=== PATIENT | female | born 1955 | race Caucasian/White ===

== ENCOUNTER → 2017-09-16 | Outpatient (CLI) | payer BC ==
--- NOTE | 2017-09-16 11:14 | BD ---
EXAMINATION TYPE: MG DEXA axial skeleton. DATE OF EXAM: 09/16/2017 COMPARISON: NONE CLINICAL HISTORY: post menopausal Height: 5'4 Weight: 178 FRAX RISK QUESTIONS: Alcohol (3 or more units per day): no Family History (Parent hip fracture): no Glucocorticoids (More than 3mos): no (Ex: prednisone, prednisolone, methylprednisolone, dexamethasone, and hydrocortisone). History of Fracture in Adulthood: no Secondary Osteoporosis: 1. Type 1 Diabetes: no 2. Hyperthyroidism: no 3. Menopause before 45: no 4. Malnutrition: no 5. Chronic liver disease: no Rheumatoid Arthritis: no Current Tobacco Use: no RISK FACTORS HISTORY OF: Diet low in dairy products/other sources of calcium: post menopausal MEDICATIONS: Thyroid Medications: Which medication: Synthroid How Lon years Additional Medications: high blood pressure, baby aspirin , cholesterol Additional History: squamous cell 10 years ago EXAM MEASUREMENTS: Bone mineral densitometry was performed using the [employer] System. Bone mineral density as measured about the Lumbar spine is: ----- L1-L4(G/cm2): 1.135 T Score Values are as follows: ----- L2: -0.8 ----- L3: -0.5 ----- L4: 0.6 ----- L1-L4: -0.4 Bone mineral density about the R hip (g/cm2): 1.011 Bone mineral density about the L hip (g/cm2): 0.995 T Score values are as follows: -----R Neck: -0.2 -----L Neck: -0.3 -----R Total: 0.4 -----L Total: 0.3 IMPRESSION: Normal (Values between +1 and -1 indicate normal bone mass). Consider repeating this study in 5 year s or sooner if there is some new clinical indication. NOTE: T-SCORE=SD OF THE YOUNG ADULT MEAN.
== END | disposition home or self-care (01) ==
LOC: RADBDWWP 10:31
PROVIDERS: ATTEND Obstetrics & Gynecology
DX: Z78.0 Asymptomatic menopausal state (principal)
CPT/HCPCS: 77080

== ENCOUNTER → 2018-11-24 | Outpatient (CLI) | payer MEDICARE, BC ==
[2018-11-24 09:44] VITALS: BP 146/88; PULSE 61; RESP 18; TEMP 98.6; BMI 31.9
--- NOTE | 2018-11-24 10:26 | P.HPOB ---
History of Present Illness H&P Date: 11/24/18 Chief Complaint: The patient is here for her routine gynecologic exam and ma mmogram. This is a 63-year-old with an LMP of 2007. The patient is without gynecologic complaints. Review of Systems Her weight has been stable.. She denies respiratory, cardiac and G.I. problems. She denies maltreatment or problems with falling. : she has occasional urinary leakage with coughing or laughing. She is declining any treatment for this at this time. 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 Hypothyroidism. 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 History of Any Multi-Drug Resistant Organisms: None Reported Past Surgical History: Tubal Ligation Additional Past Surgical History / Comment(s): R eye, ear tubes, and tonsil biopsy. Colonoscopy 2013(3rd, next 5yrs). Past Anesthesia/Blood Transfusion Reactions: No Reported Reaction Past Psychological History: No Psychological Hx Reported Smoking Status: Former smoker Past Alcohol Use History: Occasional (2 per week) Past Drug Use History: None Reported Additional History: Quit smoking in 2006. She has been since 1973 and is retired. - Past Family History Sister(s) Family Medical History: Cancer Additional Family Medical History / Comment(s): Ovarian cancer Niece Family Medical History: Cancer Additional Family Medical History / Comment(s): Breast cancer Grandmother Family Medical History: Cancer Additional Family Medical History / Comment(s): Colon cancer Father Family Medical History: Diabetes Mellitus Mother Additional Family Medical History / Comment(s): Heart disease. Medications and Allergies Home Medications Medication Instructions Recorded Confirmed Type Aspirin 81 mg PO DAILY 11/24/18 11/24/18 History Atenolol 25 mg PO DAILY 11/24/18 11/24/18 History Atorvastatin [Lipitor] 10 mg PO HS 11/24/18 11/24/18 History Levothyroxine Sodium [Synthroid] 75 mcg PO DAILY 11/24/18 11/24/18 History Losartan/Hydrochlorothiazide 50 PO DAILY 11/24/18 History [Losartan-Hctz 50-12.5 mg Tab] Allergies Allergy/AdvReac Type Severity Reaction Status Date / Time No Known Allergies Allergy Unverified 04/24/19 09:33 Exam Vital Signs Temp Pulse Resp BP Pulse Ox 11/24/18 09:38 98.6 F 61 18 146/88 97 Intake and Output 11/23/18 11/24/18 11/24/18 22:59 06:59 14:59 Other: Weight 84.368 kg Height 5'4", weight 186 pounds, BMI 31.9. This is a well-developed well-nourished white female who is alert and oriented times 3 in no acute distress. HEENT: Within normal limits. NECK: there is generalized firmness without palpable masses and no evidence of thyromegaly. The patient has a history of chronic neck firmness since her radiation treatment for tonsillar cancer many years ago. The neck is nontender. CHEST AND LUNGS: Clear to auscultation. HEART: Regular rate and rhythm. BREASTS: Are without mass or discharge. There is central nipple inversion bilaterally. The patient states it is been this way for many years. AXILLARY EXAM: Negative for adenopathy. BACK: Negative for CVA tenderness. ABDOMEN: Soft, nontender, without palpable masses. PELVIC EXAM: Normal external genitalia with mild to moderate atrophy. Cervix and vagina appear normal with mild atrophy. There is no unusual discharge. There is no evidence of prolapse at rest. There is mild urethral mobility with cough and Valsalva. No urinary leakage was demonstrated. The uterus is midposition, nongravid size and nontender. There are no palpable adnexal masses or tenderness. RECTAL EXAM: rectovaginal exam is negative for mass or tenderness and is negative for occult blood. EXTREMITIES: Nontender. IMPRESSION: 1. 63-year-old menopausal female with normal gynecologic exam. 2. Mild stress urinary incontinence without significant cystocele. 3. History of tonsillar cancer in 2006. PLAN: 1. Pap smear was deferred since she had a normal one on 07/08/2017. 2. Self breast awareness was discussed with the patient. 3. Screening mammogram will be done today. 4. The patient will follow up with her 3 specialists that follow her for her tonsillar cancer. 5. Osteoporosis prevention was discussed. I have stressed the importance of adequate calcium, vitamin D and regular exercise. Recommended amounts of calcium and vitamin D were also discussed. She had a normal bone density test on 09/16/2017 and this will be repeated at age 68. 6. I have recommended screening colonoscopy since she was told to have this repeated after 5 years. She will do this through Dr. Mota. 7. We have discussed the option of referral for further evaluation of stress urinary incontinence. She is declining referral at this time. 8.She was advised to return in one year for her annual well woman exam.
--- NOTE | 2018-11-25 10:46 | MM ---
Reason for exam: screening (asymptomatic). Last mammogram was performed 1 year and 5 months ago. History: Patient is postmenopausal and has history of other cancer at age 52. Physical Findings: A clinical breast exam by your physician is recommended on an annual basis and results should be correlated with mammographic findings. MG 3D Screening Mammo W/Cad Bilateral CC and MLO view(s) were taken. Prior study comparison: July 08, 2017, bilateral MG 3d screening mammo w/cad. June 03, 2016, bilateral MG 3d screening mammo w/cad. There are scattered fibroglandular densities. Benign calcifications in the right breast. No suspicious abnormality. No significant changes when compared with prior studies. ASSESSMENT: Benign, BI-RAD 2 RECOMMENDATION: Routine screening mammogram of both breasts in 1 year.
== END ==
LOC: WWCWWP 09:21
PROVIDERS: ATTEND Obstetrics & Gynecology
DX: Z12.31 Encounter for screening mammogram for malignant neoplasm of breast (principal)
CPT/HCPCS: 77063; 77067

== ENCOUNTER → 2020-12-12 | Outpatient (CLI) | payer MEDICARE, BC ==
[2020-12-12 09:20] VITALS: BP 136/69; PULSE 64; RESP 18; TEMP 98.4
--- NOTE | 2020-12-12 10:19 | P.HPOB ---
History of Present Illness H&P Date: 12/12/20 Chief Complaint: The patient is here for her routine gynecologic exam and ma mmogram. This is a 65-year-old with an LMP of 2007. The patient is without gynecologic complaints and denies any postmenopausal bleeding. Review of Systems She has lost 3 pounds over the past 2 years. She denies respiratory or cardiac problems. GI: Occasional constipation. She denies maltreatment or problems with falling. : She occasionally has small amount of urinary leakage if she does not get to the bathroom in time. 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 Hypothyroidism. 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 History of Any Multi-Drug Resistant Organisms: None Reported Past Surgical History: Tubal Ligation Additional Past Surgical History / Comment(s): R eye, ear tubes, and tonsil biopsy. Colonoscopy 2019(next 5yrs). Past Anesthesia/Blood Transfusion Reactions: No Reported Reaction Past Psychological History: No Psychological Hx Reported Smoking Status: Former smoker Past Alcohol Use History: Occasional (3 per week) Additional Past Alcohol Use History / Comment(s): She quit smoking in 2006. Past Drug Use History: None Reported Additional History: She has been since 1973 and is retired. She is sexually active. - Past Family History Sister(s) Family Medical History: Cancer Additional Family Medical History / Comment(s): Ovarian cancer Father Family Medical History: Diabetes Mellitus Mother Additional Family Medical History / Comment(s): Heart disease. Niece Family Medical History: Cancer Additional Family Medical History / Comment(s): Breast cancer Grandmother Family Medical History: Cancer Additional Family Medical History / Comment(s): Colon cancer Medications and Allergies Home Medications Medication Instructions Recorded Confirmed Type Aspirin 81 mg PO DAILY 11/24/18 12/12/20 History Atorvastatin [Lipitor] 10 mg PO HS 11/24/18 12/12/20 History Levothyroxine Sodium [Synthroid] 75 mcg PO DAILY 11/24/18 12/12/20 History Losartan/Hydrochlorothiazide 50 mg PO DAILY 11/24/18 12/12/20 History [Losartan-Hctz 50-12.5 mg Tab] atenoloL [Atenolol] 25 mg PO DAILY 11/24/18 12/12/20 History Cyanocobalamin (Vitamin B-12) 1,000 mcg PO DAILY 12/12/20 12/12/20 History [Vitamin B-12] Pnv No.95/Ferrous Fum/Folic AC 1 each PO DAILY 12/12/20 12/12/20 History [ Multivitamin Tablet] Allergies Allergy/AdvReac Type Severity Reaction Status Date / Time No Known Allergies Allergy Unverified 12/12/20 09:13 Exam Vital Signs Temp Pulse Resp BP Pulse Ox 12/12/20 09:16 98.4 F 64 18 136/69 99 Intake and Output 12/11/20 12/12/20 12/12/20 22:59 06:59 14:59 Other: Weight 83.007 kg Height 5 feet 4 inches, weight 183 pounds, BMI 31.4. This is a well-developed well-nourished white female who is alert and oriented times 3 in no acute distress. HEENT: Within normal limits. NECK: The neck has generalized firmness without palpable mass or evidence of thyromegaly. The patient has a history of chronic neck firmness since her radiation treatment for tonsillar cancer in 2006. The neck is nontender. The exam is unchanged from her previous physical. CHEST AND LUNGS: Clear to auscultation. HEART: Regular rate and rhythm. BREASTS: Are without mass or discharge. There is slight bilateral central nipple inversion which the patient states she has had for many years. AXILLARY EXAM: Negative for adenopathy. BACK: Negative for CVA tenderness. ABDOMEN: Soft, nontender, without palpable masses. PELVIC EXAM: Normal external genitalia with mild atrophy. Cervix and vagina appear normal with mild atrophy. There is no unusual discharge. There is no evidence of prolapse. The uterus is midposition, nongravid size and nontender. There are no palpable adnexal masses or tenderness. RECTAL EXAM: Rectovaginal exam is negative for mass or tenderness and is negative for occult blood. EXTREMITIES: Nontender. IMPRESSION: 1. 65-year-old menopausal female with normal gynecologic exam. 2. History of tonsillar cancer in 2006. PLAN: 1. Pap smear was performed. If this is negative, we will plan on discontinuing Pap smears since she is low risk and has had adequate screening. 2. Self breast awareness was discussed with the patient. 3. Screening mammogram was done today. 4. Osteoporosis prevention was discussed. I have stressed the importance of adequate calcium, vitamin D and regular exercise. Recommended amounts of calcium and vitamin D were also discussed. Next bone density test will be done at approximately age 68. 5. She did receive her Covid vaccination series. 6. I have given her suggestions to help her with her occasional constipation. 7. The patient was advised to return in 1-2 years for her well woman examination.
--- NOTE | 2020-12-13 10:05 | MM ---
Reason for exam: screening (asymptomatic). Last mammogram was performed 2 years and 1 month ago. History: Patient is postmenopausal and has history of other cancer at age 52. Family history of breast cancer in aunt. Physical Findings: A clinical breast exam by your physician is recommended on an annual basis and results should be correlated with mammographic findings. MG 3D Screening Mammo W/Cad Bilateral CC and MLO view(s) were taken. Prior study comparison: November 24, 2018, bilateral MG 3d screening mammo w/cad. July 08, 2017, bilateral MG 3d screening mammo w/cad. There are scattered fibroglandular densities. Stable benign calcifications. There is no discrete abnormality. No significant changes when compared with prior studies. ASSESSMENT: Benign, BI-RAD 2 RECOMMENDATION: Routine screening mammogram of both breasts in 1 year.
== END | disposition home or self-care (01) ==
LOC: RADMAMWWP 08:47
PROVIDERS: ATTEND Obstetrics & Gynecology
DX: Z12.31 Encounter for screening mammogram for malignant neoplasm of breast (principal); Z78.0 Asymptomatic menopausal state; Z80.3 Family history of malignant neoplasm of breast
CPT/HCPCS: 77063; 77067

== ENCOUNTER → 2021-01-04 | Outpatient (CLI) | payer MEDICARE, BC ==
--- NOTE | 2021-01-04 16:40 | US ---
EXAMINATION TYPE: US pelvic complete DATE OF EXAM: 01/04/2021 COMPARISON: 01/08/2011 CLINICAL HISTORY: Z80.41 Family history of malignant neoplasm of ovarian cancel. Family hx of ovarian ca. TECHNIQUE: Transabdominal (TA). EXAM MEASUREMENTS: Uterus: 7.2 x 2.3 x 4.3 cm Endometrial Stripe: Not visualized Right Ovary: 2.4 x 1.0 x 1.3 cm Left Ovary: 1.9 x 1.2 x 1.5 cm 1. Uterus: Anteverted wnl 2. Endometrium: Not well visualized 3. Right Ovary: wnl 4. Left Ovary: wnl 5. Bilateral Adnexa: wnl 6. Posterior cul-de-sac: wnl No free fluid. IMPRESSION: 1. Endometrial stripe is not visualized on this study. Otherwise unremarkable sonographic study of th e pelvis. No free fluid.
== END | disposition home or self-care (01) ==
LOC: RADUSWWP 15:54
PROVIDERS: ATTEND Obstetrics & Gynecology
DX: Z00.01 Encounter for general adult medical examination with abnormal findings (principal); Z80.41 Family history of malignant neoplasm of ovary
CPT/HCPCS: 76856

== ENCOUNTER → 2021-11-29 | Outpatient (CLI) | payer MEDICARE, BC ==
--- NOTE | 2021-11-29 13:34 | CT ---
EXAMINATION TYPE: CT abdomen pelvis wo con DATE OF EXAM: 11/29/2021 COMPARISON: None HISTORY: Hematuria and low back pain. CT DLP: 516.8 mGycm Automated exposure control for dose reduction was used. TECHNIQUE: Helical acquisition of images was performed from the lung bases through the pelvis. FINDINGS: The lung bases are clear. There are no gallstones in the gallbladder is normal in size. There is no organomegaly involving the liver, pancreas, spleen or adrenal glands. There are no renal or ureteral calcifications and no evidence of hydronephrosis. The bowel loops are normal in caliber is no evidence of obstruction or dilatation. There is no free i ntraperitoneal air or fluid. There is no pelvic mass, free fluid, abscess or adenopathy. There are no focal lytic or blastic bone abnormalities there is marked degenerative change at the L4- 5 level. IMPRESSION: Marked L4-5 disc degeneration. There is no evidence of renal or ureteral calcification or hydronephro sis.
== END | disposition home or self-care (01) ==
LOC: RADCTMAIN 13:00
PROVIDERS: ATTEND Family Medicine
DX: M51.36 Other intervertebral disc degeneration, lumbar region (principal)
CPT/HCPCS: 74176

== ENCOUNTER → 2022-04-01 | Outpatient (CLI) | payer MEDICARE, BC ==
[2022-04-01 16:03] VITALS: BP 174/85; PULSE 65; RESP 17; TEMP 98.7
--- NOTE | 2022-04-01 16:47 | P.HPOB ---
History of Present Illness H&P Date: 04/01/22 Chief Complaint: The patient is here for her routine gynecologic exam and ma mmogram. This is a 66-year-old with an LMP of 2007. The patient is without gynecologic complaints. She did not do the cancer genetics counseling last year as planned. She states now for personal reasons she is declining this counseling and testing. She will call if she changes her mind about this. She did have a CT scan of the abdomen and pelvis on 11/29/2021 for a non-gynecologic indication. The CT scan did indicate no signs of pelvic masses. Review of Systems The patient has lost 14 pounds over the last year. She denies respiratory, cardiac, or G.I. problems. 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 Hypothyroidism. 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 History of Any Multi-Drug Resistant Organisms: None Reported Past Surgical History: Tubal Ligation Additional Past Surgical History / Comment(s): R eye, ear tubes, and tonsil biopsy. Colonoscopy 2019(next 5yrs). Past Anesthesia/Blood Transfusion Reactions: No Reported Reaction Past Psychological History: No Psychological Hx Reported Smoking Status: Former smoker Past Alcohol Use History: Occasional (3 per week) Additional Past Alcohol Use History / Comment(s): She quit smoking in 2006. Past Drug Use History: None Reported Additional History: She has been since 1973 and is retired. She is sexually active. - Past Family History Sister(s) Family Medical History: Cancer Additional Family Medical History / Comment(s): Ovarian cancer Father Family Medical History: Diabetes Mellitus Mother Additional Family Medical History / Comment(s): Heart disease. Niece Family Medical History: Cancer Additional Family Medical History / Comment(s): Breast cancer Grandmother Family Medical History: Cancer Additional Family Medical History / Comment(s): Colon cancer Medications and Allergies Home Medications Medication Instructions Recorded Confirmed Type Aspirin 81 mg PO DAILY 11/24/18 04/01/22 History Atorvastatin [Lipitor] 10 mg PO HS 11/24/18 04/01/22 History Levothyroxine Sodium [Synthroid] 75 mcg PO DAILY 11/24/18 04/01/22 History Losartan/Hydrochlorothiazide 50 mg PO DAILY 11/24/18 04/01/22 History [Losartan-Hctz 50-12.5 mg Tab] atenoloL 25 mg PO DAILY 11/24/18 04/01/22 History Cyanocobalamin (Vitamin B-12) 1,000 mcg PO DAILY 12/12/20 04/01/22 History [Vitamin B-12] Pnv No.95/Ferrous Fum/Folic AC 1 each PO DAILY 12/12/20 04/01/22 History [ Multivitamin Tablet] Allergies Allergy/AdvReac Type Severity Reaction Status Date / Time No Known Allergies Allergy Unverified 04/01/22 15:58 Exam Vital Signs Temp Pulse Resp BP Pulse Ox 04/01/22 15:58 98.7 F 65 17 174/85 96 Intake and Output 04/01/22 04/01/22 04/01/22 06:59 14:59 22:59 Other: Weight 76.657 kg Height 5 feet 3 inches, weight 169 pounds, BMI 29.9. This is a well-developed well-nourished white female who is alert and oriented times 3 in no acute distress. HEENT: Within normal limits. NECK: The neck has generalized firmness without palpable mass or evidence of thyromegaly. The patient has had this chronic neck firmness since her radiation treatment for tonsillar cancer in 2006. The neck is nontender. This is unchanged from her previous exam. CHEST AND LUNGS: Clear to auscultation. HEART: Regular rate and rhythm. BREASTS: Are without mass or discharge. AXILLARY EXAM: Negative for adenopathy. BACK: Negative for CVA tenderness. ABDOMEN: Soft, nontender, without palpable masses. PELVIC EXAM: Normal external genitalia with mild to moderate atrophy. Cervix and vagina appear normal with mild atrophy. There is no unusual discharge. There is no evidence of prolapse. The uterus is midposition, nongravid size and nontender. There are no palpable adnexal masses or tenderness. RECTAL EXAM: Rectovaginal exam is negative for mass or tenderness and is negative for occult blood. EXTREMITIES: Nontender. IMPRESSION: 1. 66-year-old menopausal female with normal gynecologic exam. 2. History of tonsillar cancer in 2006. 3. Family history of ovarian cancer in her sister, breast cancer in a niece, and colon cancer in a grandmother. PLAN: 1. Pap smears have been discontinued. 2. Self breast awareness was discussed with the patient. We have also discussed symptoms associated with inflammatory breast cancer. 3. Screening mammogram will be done today. 4. We have again discussed cancer genetic counseling and testing. She is declining these at this time for personal reasons. She will call if she changes her mind about this. 5. I have recommended pelvic imaging to check for ovarian cancer because of her sister's history of ovarian cancer. She had a CT scan of the abdomen and pelvis on 11/29/2021 which showed no pelvic masses. Because she had this done, we will not need to do a pelvic ultrasound this year. We will resume pelvic ultrasounds yearly neck year. 6. She has completed her Covid vaccination series and has had a booster. 7.Osteoporosis prevention was discussed. I have stressed the importance of adequate calcium, vitamin D and regular exercise. Recommended amounts of calcium and vitamin D were also discussed. She had a normal bone density test here on 09/16/2017. She states she recently had a another bone density test at Dr. Mendez's office within the last 2 months. She states it was normal. Dr. Mendez will determine when her next bone density test is indicated. 8. Her last colonoscopy was in 2018 and she is due to do it again in 2023. 9. She was advised to return in one year for her annual well woman exam.
--- NOTE | 2022-04-02 10:32 | MM ---
Reason for Exam: Screening (asymptomatic). Last mammogram was performed 1 year(s) and 3 month(s) ago. Patient History: Menarche at age 7. First Full-Term at age 18. Postmenopausal. Other cancer, age 52. Maternal aunt had breast cancer. Niece had breast cancer, age 35. Risk Values: Radha 5 year model risk: 1.7%. NCI Lifetime model risk: 5.5%. Prior Study Comparison: 07/08/2017 Bilateral Screening Mammogram, [facility]. 11/24/2018 Bilateral Screening Mammogram, [facility]. 12/12/2020 Bilateral Screening Mammogram, [facility]. Tissue Density: There are scattered fibroglandular densities. Findings: Analyzed By CAD. Benign spherical calcifications are within the right breast. Posterior left breast spherical calcifications present. There is a stable nodule upper outer left breast. No suspicious groups of microcalcifications, spiculated or lobular masses, architectural distortion or other secondary signs of malignancy are mammographically apparent. Overall Assessment: Benign, BI-RAD 2 Management: Screening Mammogram of both breasts in 1 year. A negative mammogram report should not preclude additional follow up of suspicious palpable abnormalities. Patient should continue monthly self breast exam. A clinical breast exam by your physician is recommended on an annual basis and results should be correlated with mammographic findings. Electronically signed and approved by: Tal Shetty D.O. Radiologis
== END ==
LOC: WWCWWP 15:50
PROVIDERS: ATTEND Obstetrics & Gynecology
DX: Z12.31 Encounter for screening mammogram for malignant neoplasm of breast (principal); Z01.419 Encounter for gynecological examination (general) (routine) without abnormal findings; E78.5 Hyperlipidemia, unspecified; I10 Essential (primary) hypertension; E03.9 Hypothyroidism, unspecified; Z87.891 Personal history of nicotine dependence; Z79.890 Hormone replacement therapy; Z80.3 Family history of malignant neoplasm of breast; Z80.41 Family history of malignant neoplasm of ovary; Z80.2 Family history of malignant neoplasm of other respiratory and intrathoracic organs; Z80.0 Family history of malignant neoplasm of digestive organs
CPT/HCPCS: 77063; 77067

== ENCOUNTER → 2022-04-28 | Outpatient (CLI) | payer MEDICARE, BC ==
--- NOTE | 2022-04-28 16:07 | US ---
EXAMINATION TYPE: US carotid duplex BILAT DATE OF EXAM: 04/28/2022 COMPARISON: NONE CLINICAL HISTORY: 66-year-old female R09.89 [facility] SYMPTOMS AND SIGNS INVOLVING THE CIRC A. Syncope TECHNIQUE: Carotid duplex ultrasound examination. Indirect Doppler criteria was utilized. FINDINGS: EXAM MEASUREMENTS: RIGHT: Peak Systolic Velocity (PSV) cm/sec ----- Right CCA: 67.1 ----- Right ICA: 107 ----- Right ECA: 110 ICA/CCA ratio: 1.6 RIGHT: End Diastole cm/sec ----- Right CCA: 16.6 ----- Right ICA: 37.7 ----- Right ECA: 24.7 LEFT: Peak Systolic Velocity (PSV) cm/sec ----- Left CCA: 78.6 ----- Left ICA: 115 ----- Left ECA: 355 ICA/CCA ratio: 1.5 LEFT: End Diastole cm/sec ----- Left CCA: 28.3 ----- Left ICA: 38.2 ----- Left ECA: 109 VERTEBRALS (direction of flow): Right Vertebral: Antegrade Left Vertebral: Antegrade Rhythm: Normal PITCH FILLER NOTES: Bilateral ICA's appear wnl, left ECA shows significant stenosis with elevated ve locities IMPRESSION: No hemodynamically significant internal carotid artery stenosis on either side. Criteria for Assigning % of Stenosis / Diameter reduction (Estimation based on the indirect measurements of the internal carotid artery velocities (ICA PSV). 1. Normal (no stenosis)=ICA PSV < 125 cm/s: ratio < 2.0: ICA EDV<40 cm/s. 2. Less than 50% stenosis=ICA PSV < 125 cm/s: ratio < 2.0: ICA EDV<40 cm/s. 3. 50 to 69% stenosis=ICA PSV of 125 to 230 cm/s: ration 2.0 ? 4.0: ICA EDV 40-100 cm/s. 4. Greater than 70% stenosis to near occlusion= ICA PSV > 230 cm/s: ratio > 4.0: ICA EDV > 100 cm/s. 5. Near occlusion= ICA PSV velocities may be low or undetectable: variable ratio and ICA EDV. 6. Total occlusion=unable to detect flow.
== END | disposition home or self-care (01) ==
LOC: RADUSWWP 10:50
PROVIDERS: ATTEND Family Medicine
DX: R09.89 Other specified symptoms and signs involving the circulatory and respiratory systems (principal)
CPT/HCPCS: 93880

== ENCOUNTER → 2022-05-07 | Outpatient (CLI) | payer MEDICARE, BC ==
--- NOTE | 2022-05-07 08:28 | CT ---
EXAMINATION TYPE: CT facial bones wo con DATE OF EXAM: 05/07/2022 COMPARISON: None HISTORY: Possible right sided mandible fracture CT DLP: 809 mGycm CONTRAST: 0 mL of Isovue 300 The facial bones are examined in the axial plane at 2 mm thick sections. Reconstructed images in the coronal plane were obtained. Dental amalgam scatter artifact causes some limitation to the maxilla. No acute fractures are identified. There is loss of bone along the medial posterior right margin of t he mandible. Series 4 image 25. Lateral mandibular cortex at this level appears intact. Temporomandibular junction are narrowed compatible with degenerative changes. Maxillary spine is int act. Maxilla appears intact. There is mucosal thickening through the maxillary sinuses and anterior ethmoid air cells. Frontal sin uses appear clear. Some minimal mucosal thickening is through the sphenoid sinuses. There is right septal deviation. IMPRESSIONS: 1. There is some loss of cortex along the medial aspect of the right mandible. Fracture through the entire mandible is not identified.
== END | disposition home or self-care (01) ==
LOC: RADCTMAIN 06:16
PROVIDERS: ATTEND Dentist Oral and Maxillofacial Pathology
DX: M27.8 Other specified diseases of jaws (principal)
CPT/HCPCS: 70486

== ENCOUNTER → 2022-07-18 | Outpatient (CLI) | payer MEDICARE, BC ==
--- NOTE | 2022-07-18 16:07 | CT ---
EXAMINATION TYPE: CT facial bones w con DATE OF EXAM: 07/18/2022 COMPARISON: 05/07/2022 HISTORY: right sided mandible pain and tenderness CT DLP: 225 mGycm CONTRAST: 70cc mL of Isovue 300 The paranasal sinuses are examined in the axial plane at 2 mm thick sections. Reconstructed images i n the coronal plane were obtained. Findings: There is dental amalgam scatter artifact. Within the right mid mandible there is a lytic area from prior molar location. Correlate for prior ex traction. This could be erosion from abscess formation as well. Findings can be compatible with osteo myelitis. The lateral wall appears intact without erosion of the cortex. The medial wall of the right mandible is absent. Bilateral maxillary sinuses have diffuse mucosal thickening. Minimal mucosal thickening is within sph enoid sinuses. The septum is evaluated. There is septal deviation to the right. Right septal spur is noted. The ostiomeatal units are patent. Vocal cord level appears symmetrical. Subglottic area within the field of view is unremarkable. Hypop harynx appears normal. Parapharyngeal spaces and parotid regions appear normal. Threat Analyst spaces katie ear normal. IMPRESSIONS: 1. There is a lytic area within the posterior right mandibular molar region. Soft tissue is in this location with erosion of the medial wall. Correlate for abscess formation. Neoplasm is not excluded. Underlying soft tissue abscess however not clearly identified radiographically.
== END | disposition home or self-care (01) ==
LOC: RADCTMAIN 11:24
PROVIDERS: ATTEND Dentist Oral and Maxillofacial Pathology
DX: L02.91 Cutaneous abscess, unspecified (principal); M86.9 Osteomyelitis, unspecified
CPT/HCPCS: 82565; 84520; 70487; 36415; Q9967

== ENCOUNTER → 2023-04-14 | Outpatient (CLI) | payer MEDICARE, BC ==
[2023-04-14 14:03] VITALS: BP 142/68; PULSE 63; RESP 16; TEMP 98
--- NOTE | 2023-04-14 14:56 | P.HPOB ---
History of Present Illness H&P Date: 04/14/23 Chief Complaint: The patient is here for her routine gynecologic exam and ma mmogram. This is a 67-year-old with an LMP of 2007. The patient is without gynecologic complaints. Review of Systems The patient has lost 8 pounds over the last year. She denies respiratory, cardiac, or G.I. problems. 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 Hypothyroidism. 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 History of Any Multi-Drug Resistant Organisms: None Reported Past Surgical History: Tubal Ligation Additional Past Surgical History / Comment(s): R eye, ear tubes, and tonsil biopsy. Colonoscopy 2019(next 5yrs). Past Anesthesia/Blood Transfusion Reactions: No Reported Reaction Past Psychological History: No Psychological Hx Reported Smoking Status: Former smoker Past Alcohol Use History: Occasional (Two per week.) Additional Past Alcohol Use History / Comment(s): She quit smoking in 2006. Past Drug Use History: None Reported Additional History: She has been since 1973 and is retired. - Past Family History Sister(s) Family Medical History: Cancer Additional Family Medical History / Comment(s): Ovarian cancer Father Family Medical History: Diabetes Mellitus Mother Additional Family Medical History / Comment(s): Heart disease. Niece Family Medical History: Cancer Additional Family Medical History / Comment(s): Breast cancer Grandmother Family Medical History: Cancer Additional Family Medical History / Comment(s): Colon cancer Medications and Allergies Home Medications Medication Instructions Recorded Confirmed Type Aspirin 81 mg PO DAILY 11/24/18 04/01/22 History Atorvastatin [Lipitor] 10 mg PO HS 11/24/18 04/01/22 History Levothyroxine Sodium [Synthroid] 75 mcg PO DAILY 11/24/18 04/01/22 History Losartan/Hydrochlorothiazide 50 mg PO DAILY 11/24/18 04/01/22 History [Losartan-Hctz 50-12.5 mg Tab] atenoloL 25 mg PO DAILY 11/24/18 04/01/22 History Cyanocobalamin (Vitamin B-12) 1,000 mcg PO DAILY 12/12/20 04/01/22 History [Vitamin B-12] Pnv No.95/Ferrous Fum/Folic AC 1 each PO DAILY 12/12/20 04/01/22 History [ Multivitamin Tablet] Allergies Allergy/AdvReac Type Severity Reaction Status Date / Time No Known Allergies Allergy Unverified 04/14/23 13:58 Exam Vital Signs Temp Pulse Resp BP Pulse Ox 04/14/23 13:59 98 F 63 16 142/68 97 Intake and Output 04/13/23 04/14/23 04/14/23 22:59 06:59 14:59 Other: Weight 77.564 kg Height 5 feet 3 inches, weight 161 pounds, BMI 30.3. This is a well-developed well-nourished white female who is alert and oriented times 3 in no acute distress. HEENT: Within normal limits. NECK: Firm without mass or thyromegaly. The firmness of her neck has been noticed on previous exams and is consistent with her tonsillar cancer and treatment. CHEST AND LUNGS: Clear to auscultation. HEART: Regular rate and rhythm. No evidence of atrial fibrillation by auscultation at this time. BREASTS: Are without mass or discharge. There is slight left central nipple inversion. The patient states the left breast has had this for many years. AXILLARY EXAM: Negative for adenopathy. BACK: Negative for CVA tenderness. ABDOMEN: Soft, nontender, without palpable masses. PELVIC EXAM: Normal external genitalia with mild atrophy. Cervix and vagina appear normal with mild atrophy. There is no unusual discharge. There is no evidence of prolapse. The uterus is midposition, nongravid size and nontender. There are no palpable adnexal masses or tenderness. RECTAL EXAM: Rectovaginal exam is negative for mass or tenderness and is negative for occult blood. EXTREMITIES: Nontender. IMPRESSION: 1. 67-year-old menopausal female with normal gynecologic exam. 2. Family history of ovarian cancer in her sister. 3. History of tonsillar cancer in 2006. PLAN: 1. Pap smears have been discontinued. 2. Self breast awareness was discussed with the patient. We have also discussed symptoms associated with inflammatory breast cancer. 3. Screening mammogram will be done today. 4. Osteoporosis prevention was discussed. I have stressed the importance of adequate calcium, vitamin D and regular exercise. Recommended amounts of calcium and vitamin D were also discussed. Bone density testing has been done through her PCP. She will continue to have them done through her PCP. 5. Pelvic ultrasound was recommended because of her sister's history of ovarian cancer. The order slip was given to the patient for this. 6. She was advised to return in one year for her annual well woman exam.
--- NOTE | 2023-04-15 16:07 | MM ---
Reason for Exam: Screening (asymptomatic). Last mammogram was performed 1 year(s) and 1 month(s) ago. Patient History: Menarche at age 7. First Full-Term at age 18. Postmenopausal. Other cancer, age 52. Maternal aunt had breast cancer. Niece had breast cancer, age 35. Risk Values: Radha 5 year model risk: 1.7%. NCI Lifetime model risk: 5.2%. Prior Study Comparison: 11/24/2018 Bilateral Screening Mammogram, [facility]. 12/12/2020 Bilateral Screening Mammogram, [facility]. 04/01/2022 Bilateral MG 3D screening mammo w/cad, [facility]. Tissue Density: There are scattered fibroglandular densities. Findings: Analyzed By CAD. Pattern appears symmetrical and stable. No significant interval change is evident. Benign spherical calcifications are within the right breast No suspicious groups of microcalcifications, spiculated or lobular masses, architectural distortion or other secondary signs of malignancy are mammographically apparent. Overall Assessment: Benign, BI-RAD 2 Management: Screening Mammogram of both breasts in 1 year. A negative mammogram report should not preclude additional follow up of suspicious palpable abnormalities. Patient should continue monthly self breast exam. A clinical breast exam by your physician is recommended on an annual basis and results should be correlated with mammographic findings. Electronically signed and approved by: Tal Shetty D.O. Radiologis
== END ==
LOC: WWCWWP 13:53
PROVIDERS: ATTEND Obstetrics & Gynecology
DX: Z01.419 Encounter for gynecological examination (general) (routine) without abnormal findings (principal); E03.9 Hypothyroidism, unspecified; E78.5 Hyperlipidemia, unspecified; I10 Essential (primary) hypertension; I48.91 Unspecified atrial fibrillation; Z79.890 Hormone replacement therapy; Z87.891 Personal history of nicotine dependence; Z85.818 Personal history of malignant neoplasm of other sites of lip, oral cavity, and pharynx; Z12.31 Encounter for screening mammogram for malignant neoplasm of breast; Z78.0 Asymptomatic menopausal state; Z80.3 Family history of malignant neoplasm of breast; Z79.899 Other long term (current) drug therapy
CPT/HCPCS: 77063; 77067

== ENCOUNTER → 2024-04-26 | Outpatient (CLI) | payer MEDICARE, BC ==
[2024-04-26 12:57] VITALS: BP 182/85; PULSE 60; RESP 16; TEMP 98.1
--- NOTE | 2024-04-26 13:13 | P.HPOB ---
History of Present Illness H&P Date: 04/26/24 Chief Complaint: The patient is here for her routine gynecologic exam and ma mmogram. This is a 68-year-old with an LMP of 2007. The patient is without gynecologic complaints and denies any postmenopausal bleeding. Review of Systems She has lost about 13 pounds over the past year. She denies respiratory or cardiac problems. GI: She has been having some difficulty swallowing and did undergo a dilation procedure which was not successful. She states she plans on having another dilation procedure done in the near future. 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 Hypothyroidism. 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 History of Any Multi-Drug Resistant Organisms: None Reported Past Surgical History: Tubal Ligation Additional Past Surgical History / Comment(s): R eye, ear tubes, and tonsil biopsy. Colonoscopy 2019(next 5yrs). Past Anesthesia/Blood Transfusion Reactions: No Reported Reaction Past Psychological History: No Psychological Hx Reported Smoking Status: Former smoker Past Alcohol Use History: Occasional (2 drinks per week.) Additional Past Alcohol Use History / Comment(s): She quit smoking in 2006. Past Drug Use History: None Reported Additional History: She has been since 1973 and is retired. - Past Family History Sister(s) Family Medical History: Cancer Additional Family Medical History / Comment(s): Ovarian cancer Father Family Medical History: Diabetes Mellitus Mother Additional Family Medical History / Comment(s): Heart disease. Niece Family Medical History: Cancer Additional Family Medical History / Comment(s): Breast cancer Grandmother Family Medical History: Cancer Additional Family Medical History / Comment(s): Colon cancer Medications and Allergies Home Medications Medication Instructions Recorded Confirmed Type Atorvastatin [Lipitor] 10 mg PO HS 11/24/18 04/01/22 History Levothyroxine Sodium [Synthroid] 75 mcg PO DAILY 11/24/18 04/01/22 History Losartan/Hydrochlorothiazide 50 mg PO DAILY 11/24/18 04/01/22 History [Losartan-Hctz 50-12.5 mg Tab] atenoloL 25 mg PO DAILY 11/24/18 04/01/22 History Rivaroxaban [Xarelto] 1 tab PO DAILY 04/26/24 04/26/24 History Allergies Allergy/AdvReac Type Severity Reaction Status Date / Time No Known Allergies Allergy Unverified 04/26/24 12:53 Exam Vital Signs Temp Pulse Resp BP Pulse Ox 04/26/24 12:55 98.1 F 60 16 182/85 98 Intake and Output 04/25/24 04/26/24 04/26/24 22:59 06:59 14:59 Other: Weight 67.132 kg Height 5 feet 3 inches, weight 148 pounds, BMI 26.2. This is a well-developed well-nourished white female who is alert and oriented times 3 in no acute distress. HEENT: Within normal limits. NECK: The neck is somewhat firm consistent with her previous radiation treatment for her tonsillar cancer. This is unchanged from her previous exams. The neck is without mass or thyromegaly. CHEST AND LUNGS: Clear to auscultation. HEART: Regular rate and rhythm. BREASTS: Are without mass or discharge. AXILLARY EXAM: Negative for adenopathy. BACK: Negative for CVA tenderness. ABDOMEN: Soft, nontender, without palpable masses. PELVIC EXAM: Normal external genitalia with mild to moderate atrophy. Cervix and vagina appear normal with mild to moderate atrophy. There is no unusual discharge. There is no evidence of prolapse. The uterus is midposition, nong ravid size and nontender. There are no palpable adnexal masses or tenderness. RECTAL EXAM: Rectovaginal exam is negative for mass or tenderness and is negative for occult blood. EXTREMITIES: Nontender. IMPRESSION: 1. 68-year-old menopausal female with normal gynecologic exam. 2. Family history of ovarian cancer in her sister 3. Elevated blood pressure. PLAN: 1. Pap smears have been discontinued. 2. Self breast awareness was discussed with the patient. We have also discussed symptoms associated with inflammatory breast cancer. 3. Screening mammogram will be done today. 4. We have discussed her elevated blood pressure. Have recommended that she check her own blood pressures at home since she does have a blood pressure cuff. She will follow-up with her PCP for blood pressure elevations. 5. I have recommended a pelvic ultrasound because of her family history of ovarian cancer. The order slip was given to the patient for this. 6. Osteoporosis prevention was discussed. She states she has been doing bone density testing through her PCP and this has been done and is office. She states it was normal in 2021. 7. She was advised to return in one year for her annual well woman exam.
== END ==
LOC: WWCWWP 12:02
PROVIDERS: ATTEND Obstetrics & Gynecology
DX: Z12.31 Encounter for screening mammogram for malignant neoplasm of breast (principal); I10 Essential (primary) hypertension; Z80.3 Family history of malignant neoplasm of breast; Z87.891 Personal history of nicotine dependence; Z80.41 Family history of malignant neoplasm of ovary; Z78.0 Asymptomatic menopausal state; Z79.01 Long term (current) use of anticoagulants; Z79.899 Other long term (current) drug therapy

== ENCOUNTER → 2024-04-29 | Outpatient (CLI) | payer MEDICARE, BC ==
--- NOTE | 2024-05-01 11:32 | US ---
EXAMINATION TYPE: US pelvis complete transvag DATE OF EXAM: 04/29/2024 COMPARISON: US 2020 CLINICAL INDICATION: Female, 68 years old with history of Z84.2 FAMILY HISTORY OF OTHER DISEASES OF T HE [place]; TECHNIQUE: . Transabdominal sonographic images of the pelvis were acquired. Transvaginal sonographi c images were medically necessary to better assess the following anatomy: ovaries Date of LMP: 15+ years ago EXAM MEASUREMENTS: Uterus: 5.9 x 2.4 x 4.3 cm Endometrial Stripe: 0.3 cm Right Ovary: not seen Left Ovary: not seen 1. Uterus: anteverted 2. Endometrium: wnl 3. Right Ovary: not seen due to overlying bowel gas 4. Left Ovary: not seen due to overlying bowel gas 5. Bilateral Adnexa: wnl 6. Posterior cul-de-sac: wnl IMPRESSION: Portions of the study are limited however no discrete abnormality is seen. [facility], , 05/01/2024 11:30 AM
== END | disposition home or self-care (01) ==
LOC: RADUSWWP 16:26
PROVIDERS: ATTEND Family Medicine
DX: Z80.41 Family history of malignant neoplasm of ovary (principal)
CPT/HCPCS: 76830; 76856

== ENCOUNTER 2024-06-01 08:12 | Day surgery (SDC) | payer MEDICARE, BC ==
[2024-05-31 09:26] VITALS: BMI 25.8
[~2024-06-01 08:12] MED LIST: LIDOCAINE 1% (10MG/ML) FOR IV START INTRADERMA PRN
[2024-06-01 08:40] VITALS: TEMP 97
[2024-06-01] MEDS: IV FLUID CONTINUATION 1,000 ML IV ONE (08:45)
[2024-06-01] MEDS: LACTATED RINGERS 1,000 ML IV SCH (08:45)
[2024-06-01] MEDS ORDERED: PROPOFOL 10 MG/ML 20 ML VIAL IV ONE (09:37)
--- NOTE | 2024-06-01 10:02 | P.PCN ---
Date of Procedure: 06/01/24 Procedure(s) Performed: BRIEF HISTORY: Patient is a 68-year-old pleasant white female scheduled for an elective colonoscopy as a part of evaluation by history of colon polyps. Last colonoscopy was 5 years ago. PROCEDURE PERFORMED: Colonoscopy. PREOPERATIVE DIAGNOSIS: History of colon polyps. IV sedation per Anesthesia. PROCEDURE: After informed consent was obtained, the patient, was brought into the endoscopy unit. IV sedation was administered by Anesthesia under continuous monitoring. Digital rectal examination was normal. Initially the Olympus CF-160 flexible video colonoscope was then inserted in the rectum, gradually advanced into the cecum without any difficulty. Careful examination was performed as the scope was gradually being withdrawn. Ileocecal valve and the appendiceal orifice were visualized and appeared normal. Prep was excellent. Mucosa of the cecum, ascending colon, transverse colon, descending colon, sigmoid colon, and rectum appeared normal. Scattered sigmoid diverticulosis retroflexion was performed in the rectum and no lesions were seen. The patient tolerated the procedure well. IMPRESSION: Normal-appearing colon from rectum to cecum no evidence of colorectal neoplasia. Sigmoid diverticulosis. RECOMMENDATIONS: Findings of this examination were discussed with the patient as well as her family. She was advised to f have repeat colonoscopy in 10 years
[2024-06-01 10:06] VITALS: RESP 16
[2024-06-01 10:20] VITALS: BP 118/80; PULSE 57
== END 2024-06-01 10:37 | disposition home or self-care (01) ==
LOC: ORWHC2ENDO 08:12
PROVIDERS: ATTEND Internal Medicine Gastroenterology
DX: Z12.11 Encounter for screening for malignant neoplasm of colon (principal); K57.30 Diverticulosis of large intestine without perforation or abscess without bleeding; Z86.0100 Personal history of colon polyps, unspecified; Z79.899 Other long term (current) drug therapy; Z79.01 Long term (current) use of anticoagulants
CPT/HCPCS: J2704; G0121; 45378